=== PATIENT | female | born 1965 ===

== ENCOUNTER 2023-01-05 00:37 | Day surgery (SDC) | payer BC, SELFPAY ==
[2022-12-29 10:02] VITALS: BMI 31.0
--- NOTE | 2022-12-29 10:25 | PC.NURSE ---
Report to the Outpatient Waiting Room, entrance under the green pavilion located off [facility], at time _0930 on date 01/05/23. Planned Procedure Time: _1130 Time changes happen often and if your time is changed the preop area will call you the afternoon before. - You and your visitor will be asked to self-screen and do not enter if you have any COVID symptoms. - A mask is optional within the hospital at this time. Patients may have clear liquids (water, carbonated beverages, clear teas, apple juice) until 3 hours prior to surgery with a maximum of 20 ounces. - No food from midnight until time of surgery - Infants may have breast milk until 4 hours before surgery, formula 6 hours prior to surgery. - Children will be allowed to drink immediately following surgery. If applicable, please bring a bottle or sippy cup to assist with drinking. Juice, water, soda, and popsicles are readily available. For infants on formula, please bring formula the day of surgery. Pacifiers are allowed. Take the following medications with a SIP of water the morning of surgery: _n/a DO NOT STOP ANY OF YOUR OTHER PRESCRIPTION MEDICATIONS PRIOR TO SURGERY ?EXCEPT THE FOLLOWING Medications to discontinue per physician __Multivitamin 01/02/23, oral diabetic(morning of surgery)___ Date to take last dose Please no make-up, nail citizen of [place], hairspray, perfume, deodorant, or body powder the day of surgery. No jewelry (including any body piercings) or valuables the day of surgery, leave them at home. Please take a shower or bath the night before, or the morning of, surgery with an antibacterial soap. Wear comfortable, loose fitting clothing. Children are encouraged to wear pajamas. - Jewelry must be removed prior to entering the operating room. Rings and piercings that are not removed may be cut off. - The hospital will not accept responsibility for valuables. - Please leave all valuables, including medications, at home the day of surgery. If you are going home after surgery, a licensed local company flatbed truck driver must drive you home. - NO public transportation without another adult if you receive anesthesia. - We recommend that an adult stay with you for 24 hours following discharge. - We also recommend that you do not drive, make important decision, drink alcoholic beverages, or take any drugs that were not prescribed by your health care provider for at least 24 hours after your discharge time. For Pediatric surgeries, we recommend two adults accompany the child home. Follow any additional instructions given to you from your surgeon. If you or anyone in your household have experienced Covid symptoms in the past week, please notify your surgeon or the nurse liaison at the phone number below for possible testing. Telephone instructions given to Michelle Schaffer and asked if any additional questions and then verbalized understanding. Patient advised to call surgeon office or pre surgery nurse liaison [phone] if any additional questions.
--- NOTE | 2023-01-05 08:22 | WPDHPUPDATE1 ---
History and Physical Update Update Date/Time: 01/05/23 08:22 History and Physical has been reviewed, including an updated exam of the patient. There are NO changes in the patient's condition. Risks, benefits, and alternatives have been discussed and questions answered. Patient agrees to proceed with procedure.
[2023-01-05 09:07] VITALS: BP 115/72; PULSE 72; RESP 18; TEMP 36.2; O2SAT 99
[2023-01-05 09:29] LABS: Glucose Point of Care 162 mg/dl (65-105)
--- NOTE | 2023-01-05 09:48 | P.PNAN_ITS ---
Anes - Initial Pre Proc Eval Procedure: Operation Date: 01/05/23 11:30 Proposed Procedures p Removal Suture Granuloma in Abdomen - Lloyd Hobbs MD Date/Time: 01/05/23 09:48 Surgeon: Lloyd Hobbs MD Pre Op Diagnosis: suture granuloma Patient Data Age: 57 Gender: F Height: 1.63 m Weight: 82 kg Allergies Allergy/AdvReac Type Severity Reaction Status Date / Time Sulfa (Sulfonamide Allergy Unknown Unknown Verified 01/05/23 09:31 Antibiotics) No Known Allergies Allergy Unverified 01/05/23 09:31 Home Medications Medication Instructions Recorded Confirmed Type empagliflozin 12.5 mg-linaglipt 1 tablet PO DAILY 12/27/22 12/29/22 History 2.5 mg-metform ER 1,000 mg tablet,24hr (Trijardy XR) losartan 25 mg tablet 25 mg PO DAILY 12/27/22 12/29/22 History multivitamin 1 tablet PO DAILY 12/27/22 12/29/22 History Laboratory Tests 01/05/23 09:26 POC Capillary Glucose 162 H mg/dl (65-105) Patient hx anesthesia problems: none Family hx anesthesia problems: none Results Review: All pre-operative results and documents have been reviewed as part of the pre- operative evaluation. [facility] Past Medical History Medical History Diabetes Surgical History Surgical History History of retained foreign body fully removed S/P appendectomy S/P S/P cholecystectomy Social History Social History Smoking status: Never smoker Alcohol intake: never Substance use: never Living arrangements: with family Spiritual care concerns: No Anes - Eval Final PreProcedure Day of Procedure 01/05/23 09:48 Patient weight: obese Heart: regular rate and rhythm Lungs: clear to auscultation Airway: Mallampati scale class II Neurological: alert and oriented Last oral intake: >/= 8 hours ASA classification: II Emergent: no Anesthetic plan: proceed Anesthesia type and monitoring: general GIVS and standard monitoring Results Review: All pre-operative results and documents have been reviewed as part of the pre- operative evaluation. Informed Consent: The patient's anesthetic plan and its attendant risks and benefits were discussed with the patient/family/POA. Questions were solicited and answers provided to the satisfaction of the patient/family/POA.
[2023-01-05] MEDS: ceFAZolin 2 GM/D5W 50 ML 2 GM/50 ML BAG IVPB (10:03)
[2023-01-05 10:29] VITALS: BP 85/33; PULSE 81; RESP 12; O2SAT 92
[2023-01-05] MEDS: LACTATED RINGERS 1,000 ML 30 ML IV CONT (10:29)
[2023-01-05] MEDS: BUPIVACAINE/EPINEPHRINE 0.25% 50 ML VIAL 10 ML INFILTRATE (10:33)
--- NOTE | 2023-01-05 10:40 | W.PM.PROC2 ---
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 She has had a draining wound in the midportion of the old incision for several weeks. I probed this in the office but was unable to find any suture material. She is taken to surgery now for removal suture granuloma under anesthesia. Findings She had a blue Prolene suture in the abdominal wall just a bit cephalad from the skin opening that had been draining. Description of Procedure Patient was checked in the preoperative holding area. She was then taken the operating room and anesthesia was administered. Prep and drape of the abdomen was carried out. Local anesthetic was infiltrated above and below the open area in her old incision. The deeper subcutaneous and fascia was also infiltrated. I probed the incision and was not able to find any suture. I made an incision just cephalad to the opening. I then used a clamp and was able to see some blue suture material. Further blunt dissection allowed me to grasp the suture material and cut it free from the fascia. The material was then brought up out of the wound and discarded. I checked for any additional suture material in the vicinity. None was found. The wound was dressed with a Band-Aid. Counts were correct x2 Estimated Blood Loss 0 Drains No Packing No Pathology None sent Complications No immediate complications Condition Stable Disposition Same day [facility] Billing Surgery - Charge Forward: Surgery Billing (Removal suture granuloma under anesthesia)
[2023-01-05 10:44] LABS: Glucose Point of Care 152 mg/dl (65-105)
[2023-01-05 10:50] VITALS: BP 94/49; PULSE 73; RESP 14; O2SAT 93
[2023-01-05 11:15] VITALS: BP 111/56; PULSE 64; RESP 14; O2SAT 97
[2023-01-05 11:45] VITALS: BP 127/74; PULSE 75; RESP 16
== END 2023-01-05 11:58 | disposition home or self-care (01) ==
PROVIDERS: PCP Registered Nurse; Visit Provider Surgery
PROC: (CPT 10121; principal; 2023-01-05 11:30)
DX: L92.3 Foreign body granuloma of the skin and subcutaneous tissue (principal); T81.89XA Other complications of procedures, not elsewhere classified, initial encounter; E11.9 Type 2 diabetes mellitus without complications; Z79.84 Long term (current) use of oral hypoglycemic drugs; E66.9 Obesity, unspecified; Z68.30 Body mass index [BMI] 30.0-30.9, adult; Y83.8 Other surgical procedures as the cause of abnormal reaction of the patient, or of later complication, without mention of misadventure at the time of the procedure
CPT/HCPCS: 10121; 82948; J0690; J2250; J2704; J3010; J7120

== ENCOUNTER → 2023-02-17 07:48 | Outpatient (CLI) | payer BC, SELFPAY ==
--- NOTE | ~2023-02-17 | CT_ITS ---
EXAMINATION: CT IAC/mastoids BI wo con DATE: 02/17/2023 08:16 INDICATION: Perforation of right tympanic membrane. TECHNIQUE: Computed tomography (CT) of the temporal bones was performed without intravenous contrast. Automated exposure control and iterative reconstruction technique were employed. The dose-length pro duct was 195.38 mGy-cm. COMPARISON: None FINDINGS: RIGHT TEMPORAL BONE: The internal auditory canal, cochlea, vestibule, semicircular canals, vestibular aqueduct, carotid ca nal, jugular bulb, facial nerve course, and ossicles are normal. There is perforation of the tympanic membrane. There is material measuring up to 2 mm abutting the ossicles and superior aspect of the ty mpanic membrane. Scutum is normal. The external auditory canal is normal. There is a small right mast oid effusion. 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 The tympanic membrane is not well visualized throughout, and perforation cannot be excluded. 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 IMPRESSION: 1. Perforation of right tympanic membrane with material measuring up to 2 mm abutting the ossicles an d superior aspect of the tympanic membrane. 2. Small right mastoid effusion. 3. Left tympanic membrane not well visualized throughout, which may be secondary to technique, but pe rforation cannot be excluded. 4. Severe osteoarthritis of the temporomandibular joints with loose bodies on the right. Reviewed, dictated and finalized at location A. IMPRESSION: 1. Perforation of right tympanic membrane with material measuring up to 2 mm ab utting the ossicles and superior aspect of the tympanic membrane. 2. Small right mastoid effusion. 3. Left tympanic membrane not well visualized throughout, which may be secondar y to technique, but perforation cannot be excluded. 4. Severe osteoarthritis of the temporomandibular joints with loose bodies on t he right.
== END ==
PROVIDERS: PCP Registered Nurse
DX: H72.91 Unspecified perforation of tympanic membrane, right ear (principal); M19.09 Primary osteoarthritis, other specified site
CPT/HCPCS: 70480